=== PATIENT | female | born 1975 | race Hispanic/Latino ===

== ENCOUNTER 2016-10-29 16:27 | Emergency (ER) | payer MEDICARE, MEDICAID ==
[2016-10-29 16:27] VITALS: BMI 55.5
[2016-10-29 16:57] VITALS: RESP 18; O2SAT 99
[2016-10-29] MEDS ORDERED: Albuterol-Ipratrop 3 mg / 0.5 (3 ml) UD IH STA (17:24)
[2016-10-29 17:31] VITALS: PULSE 72
[2016-10-29] MEDS ORDERED: Sodium Chloride 0.9% 1,000 ML IV ONE (17:31)
[2016-10-29] MEDS ORDERED: Sodium Chloride 0.9% 1,000 ML ONE (17:37)
[2016-10-29 17:42] LABS: BASO # 0.1 K/uL (0.0-0.2); BASO % 0.7 % (0.0-2.0); EOS # 0.2 K/uL (0.0-0.7); EOS % 2.1 % (0.0-4.0); HEMATOCRIT 42.2 % (34.0-47.0); LYMPH # 2.4 K/uL (1.0-4.3); LYMPH % 21.9 % (20.0-40.0); MEAN CELL VOLUME 82.7 fL (81.0-99.0); MEAN CORPUSCULAR HEMOGLOBIN 27.3 pg (27.0-31.0); MEAN PLATELET VOLUME 9.7 fL (7.2-11.7); MONO # 0.5 K/uL (0.0-0.8); MONO % 4.5 % (0.0-10.0); NRBC % 0.1 % (0.0-2.0); RED CELL DISTRIBUTION WIDTH 13.1 % (11.5-14.5); WHITE BLOOD COUNT 10.9 K/uL (4.8-10.8)
--- NOTE | 2016-10-29 17:43 | RAD ---
HISTORY: chest pain COMPARISON: Chest x-ray performed 08/07/15 TECHNIQUE: Chest, one view. FINDINGS: Examination limited by habitus and hypoinflation. LUNGS: No focal consolidation. Please note that chest x-ray has limited sensitivity for the detection of pulmonary masses. PLEURA: No significant pleural effusion identified. No definite pneumothorax . CARDIOVASCULAR: Heart size appears borderline enlarged, likely exaggerated by hypoinflation and portable technique. OSSEOUS STRUCTURES: Degenerative changes. VISUALIZED UPPER ABDOMEN: Unremarkable. OTHER FINDINGS: None. IMPRESSION: No focal consolidation, significant pleural effusion, or definite pneumothorax identified. Heart size appears borderline enlarged, likely exaggerated by hypoinflation and portable technique.
[2016-10-29 17:45] LABS: CHLORIDE 93 mmol/L (98-107); SODIUM 133 mmol/L (132-148)
[2016-10-29 17:46] LABS: POTASSIUM 4.1 mmol/L (3.6-5.2)
[2016-10-29] MEDS ORDERED: Albuterol-Ipratrop 3 mg / 0.5 (3 ml) UD ONE (17:46)
[2016-10-29 17:48] LABS: ALB/GLOB RATIO 1.1 (1.0-2.1); ALKALINE PHOSPHATASE 121 U/L (38-126); ALT/SGPT 95 U/L (9-52); AST/SGOT 92 U/L (14-36); BILIRUBIN,TOTAL 0.7 mg/dL (0.2-1.3); BLOOD UREA NITROGEN 12 mg/dL (7-17); CARBON DIOXIDE 30 mmol/L (22-30); GFR AFRICAN-AMERICAN > 60; TOTAL PROTEIN 7.6 g/dL (6.3-8.3)
[2016-10-29 17:49] LABS: CALCIUM 9.6 mg/dl (8.6-10.4)
[2016-10-29 17:50] LABS: GLUCOSE,RANDOM 411 mg/dL (65-105)
--- NOTE | 2016-10-29 18:04 | C.PDOC ---
History Of Present Illness <Leah Sanchez - Last Filed: 10/29/16 19:01> <Monster Carrero - Last Filed: 10/29/16 22:14> 41 year old female with a history of severe sleep apnea presents to the ED with complaints of a chest pressure on her right side for two days with intermittent coughing. Patient notes she was seen in [place] in [place] for similar complaints. She states she lives next door to a "crack house," has mice in her apartment, and severe mold in the hallway of her apartment. She is concerned these factors are impacting her health. Patient was told in January 2016 that the mold was exacerbating her asthma. She denies fever, nausea, vomiting, or other complaints at this time. (Leah Sanchez) History Per: Patient History/Exam Limitations: no limitations Onset/Duration Of Symptoms: Days (2 days ) Current Symptoms Are (Timing): Still Present Associated Symptoms: denies: Nausea, Dyspnea, Diaphoresis, Syncope Recent travel outside of the [place]: No <Leah Sanchez - Last Filed: 10/29/16 19:01> <Monster Carrero - Last Filed: 10/29/16 22:14> Time Seen by Provider: 10/29/16 17:07 Chief Complaint (Nursing): Chest Pain Past Medical History Reviewed: Historical Data, Nursing Documentation, Vital Signs - Medical History PMH: Arthritis (RA, OA), Asthma, Bronchitis, Depression, Diabetes (type II), Fibromyalgia, HTN, Rheumatoid Arthritis, Sleep Apnea Surgical History: Cholecystectomy, Family History: States: Unknown Family Hx - Social History Hx Tobacco Use: No Hx Alcohol Use: No Hx Substance Use: No - Immunization History Hx Tetanus Toxoid Vaccination: No Hx Influenza Vaccination: No Hx Pneumococcal Vaccination: No <Leah Sanchez - Last Filed: 10/29/16 19:01> Review Of Systems Except As Marked, All Systems Reviewed And Found Negative. Constitutional: Negative for: Fever, Chills Cardiovascular: Positive for: Chest Pain (chest pressure on the right side ) Respiratory: Positive for: Cough <Leah Sanchez - Last Filed: 10/29/16 19:01> Physical Exam - Physical Exam Appears: Non-toxic, No Acute Distress, Other (Patient is obese) Skin: Warm, Dry Head: Atraumatic, Normacephalic Eye(s): bilateral: Normal Inspection, PERRL, EOMI Ear(s): Bilateral: Normal Oral Mucosa: Moist Throat: Normal, No Erythema, No Exudate Neck: Normal ROM, Supple Chest: Symmetrical, No Deformity, No Tenderness Cardiovascular: Rhythm Regular, No Friction Rub, No Murmur Respiratory: Normal Breath Sounds, No Rales, No Rhonchi, No Stridor, No Wheezing Gastrointestinal/Abdominal: Soft, No Tenderness Back: Normal Inspection, No CVA Tenderness Extremity: Normal ROM, No Tenderness, No Swelling Neurological/Psych: Oriented x3, Normal Speech, Normal Cognition, Normal Motor, Normal Sensation Gait: Steady <Leah Sanchez - Last Filed: 10/29/16 19:01> ED Course And Treatment - Laboratory Results Result Diagrams: 10/29/16 17:34 10/29/16 17:34 O2 Sat by Pulse Oximetry: 99 (room air ) Pulse Ox Interpretation: Normal Progress Note: Labs were ordered and patient was given Albuterol and IV fluids. <Leah Sanchez - Last Filed: 10/29/16 19:01> - Laboratory Results Result Diagrams: 10/29/16 17:34 10/29/16 17:34 <Monster Carrero - Last Filed: 10/29/16 22:14> Disposition - Disposition Disposition Time: 18:58 <Leah Sanchez - Last Filed: 10/29/16 19:01> Counseled Patient/Family Regarding: Studies Performed, Diagnosis, Need For Followup, Smoking Cessation <Monster Carrero - Last Filed: 10/29/16 22:14> - Disposition Referrals: [facility] [Outside] [facility] [Outside] Disposition: HOME/ ROUTINE Condition: FAIR Instructions: Diabetic Hyperglycemia (ED) Forms: [employer] (Angolan) - Clinical Impression Clinical Impression: Hyperglycemia, Bronchitis - Scribe Statement The provider has reviewed the documentation as recorded by the Scribe <Leah Sanchez - Last Filed: 10/29/16 19:01> <Monster Carrero - Last Filed: 10/29/16 22:14> - Scribe Statement Christine Mora All medical record entries made by the Scribe were at my direction and personally dictated by me. I have reviewed the chart and agree that the record accurately reflects my personal performance of the history, physical exam, medical decision making, and the department course for this patient. I have also personally directed, reviewed, and agree with the discharge instructions and disposition. (Leah Sanchez) Physician Patient Turnover Patient Signed Over To: Monster Carrero Handoff Comments: Pending repeat finger stick and re-evaluation <Leah Sanchez - Last Filed: 10/29/16 19:01>
[2016-10-29] MEDS ORDERED: (Novolin R) Insulin Human Regular 100 units/ml vial IV STA (18:46)
[2016-10-29] MEDS ORDERED: (Novolin R) Insulin Human Regular 100 units/ml vial ONE (19:55)
[2016-10-29 22:42] VITALS: BP 113/59; TEMP 97.9
--- NOTE | 2016-11-01 17:51 | CARD ---
APPROVED REPORT EKG Measurement Heart [id number] <Conclusion> Normal sinus rhythm Cannot rule out Anterior infarct, age undetermined Abnormal ECG
== END 2016-10-29 22:30 | disposition home or self-care (01) ==
LOC: C.ER 16:27
DX: J40 Bronchitis, not specified as acute or chronic (principal); E11.65 Type 2 diabetes mellitus with hyperglycemia
CPT/HCPCS: 71010; 80053; 82948; 84484; 84703; 85025; 93005; 94640; 96360; 99285; J7040

== ENCOUNTER 2018-01-10 16:46 | Emergency (ER) | payer MEDICARE, MEDICAID ==
[2018-01-10 17:10] VITALS: BMI 51.2
[2018-01-10 17:38] LABS: BASO # 0.1 K/uL (0.0-0.2); BASO % 0.8 % (0.0-2.0); EOS # 0.3 K/uL (0.0-0.7); EOS % 2.3 % (0.0-4.0); HEMOGLOBIN 13.7 g/dL (11.0-16.0); LYMPH # 3.2 K/uL (1.0-4.3); LYMPH % 25.9 % (20.0-40.0); MEAN CELL VOLUME 82.4 fL (81.0-99.0); MEAN CORPUSCULAR HEMOGLOBIN 28.3 pg (27.0-31.0); MEAN CORPUSCULAR HGB CONC 34.3 g/dL (33.0-37.0); MEAN PLATELET VOLUME 8.6 fL (7.2-11.7); MONO # 0.5 K/uL (0.0-0.8); NEUT # 8.3 K/uL (1.8-7.0); RBC 4.83 Mil/uL (3.80-5.20); WHITE BLOOD COUNT 12.4 K/uL (4.8-10.8)
[2018-01-10 17:53] LABS: ALB/GLOB RATIO 1.2 (1.0-2.1); ALBUMIN 4.3 g/dL (3.5-5.0); ALT/SGPT 30 U/L (9-52); AST/SGOT 27 U/L (14-36); BLOOD UREA NITROGEN 15 mg/dL (7-17); CALCIUM 10.2 mg/dl (8.6-10.4); GFR NON-AFRICAN AMERICAN > 60
[2018-01-10 18:09] VITALS: BP 134/83; PULSE 67; RESP 17; O2SAT 98
--- NOTE | 2018-01-10 18:20 | C.PDOC ---
History Of Present Illness 42 y/o female presents to ED with c/o intermittent left sided sharp chest pain for 4 weeks. Patient has history of anxiety and states she has been under a lot of stress secondary to of close friend. Patient denies fever, cough, sob, nausea, vomiting or any other complaints at this time. Chief Complaint (Nursing): Chest Pain History Per: Patient History/Exam Limitations: no limitations Onset/Duration Of Symptoms: Days Current Symptoms Are (Timing): Still Present Past Medical History Reviewed: Historical Data, Nursing Documentation, Vital Signs Vital Signs: Last Vital Signs Temp 97.6 F 01/10/18 17:10 Pulse 67 01/10/18 18:08 Resp 17 01/10/18 18:08 BP 134/83 01/10/18 18:08 Pulse Ox 98 01/10/18 18:08 - Medical History PMH: Arthritis (RA, OA), Asthma, Bronchitis, Depression, Diabetes (type II), Fibromyalgia, HTN, Rheumatoid Arthritis, Sleep Apnea Surgical History: Cholecystectomy, - [facility] INTRODUCTION OF SERUM/TOX/VACCINE INTO MUSCLE, PERC APPROACH (06/01/15) Family History: States: No Known Family Hx - Social History Hx Tobacco Use: No Hx Alcohol Use: No Hx Substance Use: No - Immunization History Hx Tetanus Toxoid Vaccination: No Hx Influenza Vaccination: No Hx Pneumococcal Vaccination: No Review Of Systems Constitutional: Negative for: Fever, Chills Cardiovascular: Positive for: Chest Pain Respiratory: Negative for: Cough, Shortness of Breath Gastrointestinal: Negative for: Nausea, Vomiting Skin: Negative for: Rash Physical Exam - Physical Exam Appears: Non-toxic, No Acute Distress Skin: Warm, Dry, No Rash Head: Atraumatic, Normacephalic Eye(s): bilateral: Normal Inspection Oral Mucosa: Moist Neck: Supple Cardiovascular: Rhythm Regular Respiratory: Normal Breath Sounds, No Rales, No Rhonchi, No Wheezing Gastrointestinal/Abdominal: Soft, No Tenderness, No Guarding, No Rebound Neurological/Psych: Oriented x3, Normal Speech, Normal Cognition ED Course And Treatment - Laboratory Results Result Diagrams: 01/10/18 17:35 01/10/18 17:35 ECG: Interpreted By Me, Viewed By Me ECG Rhythm: Sinus Rhythm Rate From EC (BPM) O2 Sat by Pulse Oximetry: 98 (RA) Pulse Ox Interpretation: Normal Disposition - Disposition Referrals: [facility], [Non-Staff] - Disposition: HOME/ ROUTINE Disposition Time: 18:30 Condition: GOOD Additional Instructions: CAMILA ARTIS, thank you for letting us take care of you today. The emergency medical care you received today was directed at your acute symptoms. If you were prescribed any medication, please fill it and take as directed. It may take several days for your symptoms to resolve. Return to the Emergency Department if your symptoms worsen, do not improve, or if you have any other problems. Please contact your doctor or call one of the physicians/clinics you have been referred to that are listed on the Patient Visit Information form that is included in your discharge packet. Bring any paperwork you were given at discharge with you along with any medications you are taking to your follow up visit. Our treatment cannot replace ongoing medical care by a primary care provider outside of the emergency department. Thank you for allowing the [facility] team to be part of your care today. Follow up with your primary care doctor in 2-3 days for re-evaluation and further management. Instructions: Chest Pain That Is Not Caused by the Heart (DC), Anxiety, Adult (DC) Forms: [employer] (Uzbek) - Clinical Impression Clinical Impression: Non-cardiac chest pain - Scribe Statement The provider has reviewed the documentation as recorded by the Scribmichel Subramanian All medical record entries made by the Scribe were at my direction and personally dictated by me. I have reviewed the chart and agree that the record accurately reflects my personal performance of the history, physical exam, medical decision making, and the department course for this patient. I have also personally directed, reviewed, and agree with the discharge instructions and disposition.
--- NOTE | 2018-01-10 18:24 | RAD ---
Date of service: 01/10/2018 PROCEDURE: CHEST RADIOGRAPH, 1 VIEW HISTORY: chest pain COMPARISON: Chest radiograph dated 10/29/2016 FINDINGS: LUNGS: Clear. PLEURA: No pneumothorax or pleural fluid seen. CARDIOVASCULAR: No aortic atherosclerotic calcifications present. Cardiomediastinal silhouette stably prominent. OSSEOUS STRUCTURES: No significant abnormalities. VISUALIZED UPPER ABDOMEN: Normal. OTHER FINDINGS: None. IMPRESSION: No active disease.
[2018-01-10 18:49] VITALS: TEMP 97.7
--- NOTE | 2018-01-12 11:20 | CARD ---
APPROVED REPORT Date of service: 01/10/2018 EKG Measurement Heart [id number] <Conclusion> Normal sinus rhythm Possible Left atrial enlargement Cannot rule out Anterior infarct, age undetermined Abnormal ECG
== END 2018-01-10 18:51 | disposition home or self-care (01) ==
LOC: C.ER 16:46
DX: R07.89 Other chest pain (principal)